=== PATIENT | male | born 1970 | race Caucasian/White ===

== ENCOUNTER 2017-10-06 10:56 | Emergency (ER) | payer BC ==
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
== END 2017-10-06 12:48 | disposition home or self-care (01) ==
LOC: UCEAST 10:56
DX: M25.571 Pain in right ankle and joints of right foot (principal); M25.471 Effusion, right ankle; Z87.891 Personal history of nicotine dependence; J45.909 Unspecified asthma, uncomplicated
CPT/HCPCS: 99212; G0463

== ENCOUNTER 2019-04-12 09:08 | Day surgery (SDC) | payer BC ==
[~2019-04-12 09:08] MED LIST: Buffered Lidocaine 1% SYRIN* 1 ML/SYRINGE INTRADERM ONE; Dexamethasone IV* 4 MG/ML 1 ML (4 MG) IV SLOW PU ONE; Famotidine TAB* 20 MG PO ONE; Lactated Ringers 1000 ML Bag* 1,000 ML IV SCH
[2019-04-12] MEDS ORDERED: Dexamethasone IV* 4 MG/ML 1 ML (4 MG) ONE (09:18)
[2019-04-12] MEDS ORDERED: Famotidine TAB* 20 MG ONE (09:18)
[2019-04-12] MEDS ORDERED: Buffered Lidocaine 1% SYRIN* 1 ML/SYRINGE INTRADERM ONE (09:19)
[2019-04-12] MEDS ORDERED: ceFAZolin 2 GM PREMIX in ORs 2 GM/50 ML BAG ONE (09:19)
[2019-04-12] MEDS ORDERED: Midazolam* 1 MG/ML 2 ML VIAL (2 MG) ONE (09:57)
[2019-04-12] MEDS ORDERED: fentaNYL* 50 MCG/ML 2 ML VIAL (100 MCG VIAL) ONE (09:57)
[2019-04-12] MEDS ORDERED: Propofol* 10 MG/ML 20 ML BTL ONE (09:58)
[2019-04-12] MEDS ORDERED: Levalbuterol 0.63MG/3ML NEB* UNIT OF USE INH ONE ×3 (10:25→11:55)
[2019-04-12] MEDS ORDERED: Bupivacaine 0.5%* 50 ML VIAL ONE (10:30)
[2019-04-12] MEDS ORDERED: oxyCODONE/Acetamin 5/325 MG* TAB PO PRN (10:57)
[2019-04-12] MEDS ORDERED: Ondansetron INJ* 2 MG/ML VIAL IV PRN (10:57)
[2019-04-12] MEDS ORDERED: Ketorolac INJ* 30 MG/ML 1 ML VIAL IV PRN (10:57)
[2019-04-12] MEDS ORDERED: Naloxone* 0.4 MG/ML 1 ML VIAL IV PRN (10:57)
[2019-04-12] MEDS ORDERED: Acetaminophen TAB* 325 MG PO PRN (10:57)
[2019-04-12] MEDS ORDERED: fentaNYL* 50 MCG/ML 2 ML VIAL (100 MCG VIAL) IV PRN (10:57)
--- NOTE | 2019-04-12 11:56 | OP ---
DATE OF OPERATION: 04/12/19 - [facility] DATE OF : 66 SURGEON: Hardy Mccloud MD. PRE-OP DIAGNOSIS: Incisional hernia. POST-OP DIAGNOSIS: Incisional hernia. OPERATIVE PROCEDURE: Repair of incisional hernia with mesh. INDICATIONS: Symptomatic incisional hernia. Risks included but not limited to bleeding, infection, recurrence with the hernia, injury to intraabdominal contents were explained to the patient, who seemed to understand and agreed with the procedure and all questions were answered. DESCRIPTION OF PROCEDURE: The patient was taken to the operating room, placed supine. Preoperative antibiotics were given. After the successful induction of general sedation, the abdomen was prepped and draped in a sterile fashion. A time- out was performed indicating correct patient, correct procedure. The skin was anesthetized with plain Marcaine. An incision was made below the incisional hernia and carried down into the deep subcutaneous tissue. Using Bovie cautery, the hernia sac was opened, excised, and some omental tissue was reduced back to within the abdomen. I placed my finger through the defect and swept the anterior abdominal wall and it was found to be free of adhesions. A Ventralex patch was then passed through the defect and pulled up against the anterior abdominal wall and sutured in place with interrupted 0 Vicryl suture. EBL was minimal. Hemostasis was intact. The wound was irrigated. Marcaine was applied to the fascia and musculature in the area around the hernia. The skin was closed with Monocryl, glue was applied to the skin. He tolerated the procedure well and he was taken to the Recovery in stable condition. [id number]/[facility] #: [id number] [facility]
[2019-04-12 12:38] VITALS: BP 116/79
== END 2019-04-12 13:49 | disposition home or self-care (01) ==
LOC: OR 09:08
PROVIDERS: ATTEND Surgery
DX: K43.2 Incisional hernia without obstruction or gangrene (principal); F41.8 Other specified anxiety disorders; J45.909 Unspecified asthma, uncomplicated; Z87.891 Personal history of nicotine dependence; G73.3 Myasthenic syndromes in other diseases classified elsewhere; K21.9 Gastro-esophageal reflux disease without esophagitis; F90.9 Attention-deficit hyperactivity disorder, unspecified type; G89.29 Other chronic pain
CPT/HCPCS: A9270-GY; C1781; J0690; J1100; J2250; J2704; J3010; J3490